=== PATIENT | male | born 1950 | race Caucasian/White ===

== ENCOUNTER 2019-09-10 19:22 | Emergency (ER) | payer MEDICARE, OTHER ==
[~2019-09-10] VITALS: Ht 162.6 cm; Wt 72.3 kg
[2019-09-10 20:14] VITALS: BP 135/70
[2019-09-10 20:39] LABS: GLUCOSE,POINT OF CARE 164 MG/DL (70-110)
== END 2019-09-10 20:14 | disposition home or self-care (01) ==
LOC: EMS 19:22
DX: T82.838A Hemorrhage due to vascular prosthetic devices, implants and grafts, initial encounter (principal); E11.22 Type 2 diabetes mellitus with diabetic chronic kidney disease; N18.6 End stage renal disease; Z99.2 Dependence on renal dialysis

== ENCOUNTER 2024-07-09 21:39 | Emergency (ER) | payer OTHER ==
[~2024-07-09] VITALS: Ht 175.3 cm; Wt 69.1 kg
[2024-07-09 22:10] VITALS: TEMP 98.1
[2024-07-10] MEDS: BACITRACIN 0.9 GM PACKET OINTMENT TP ONE (00:03)
[2024-07-10 00:12] VITALS: BP 141/67; PULSE 81; RESP 16; O2SAT 98
== END 2024-07-10 00:32 | disposition home or self-care (01) ==
LOC: EMS 21:39
DX: S40.811A Abrasion of right upper arm, initial encounter (principal); S50.811A Abrasion of right forearm, initial encounter; I13.2 Hypertensive heart and chronic kidney disease with heart failure and with stage 5 chronic kidney disease, or end stage renal disease; E11.22 Type 2 diabetes mellitus with diabetic chronic kidney disease; I50.9 Heart failure, unspecified; N18.6 End stage renal disease; E03.9 Hypothyroidism, unspecified; F03.90 Unspecified dementia, unspecified severity, without behavioral disturbance, psychotic disturbance, mood disturbance, and anxiety; Z99.2 Dependence on renal dialysis; X58.XXXA Exposure to other specified factors, initial encounter; Y93.89 Activity, other specified; Y92.89 Other specified places as the place of occurrence of the external cause; Y99.8 Other external cause status
CPT/HCPCS: 99283